=== PATIENT | female | born 1950 | race African-American/Black ===

== ENCOUNTER → 2022-12-15 | Day surgery (SDC) | payer MEDICARE, BC ==
[~2022-12-15] VITALS: Ht 167.6 cm; Wt 89.8 kg
[~2022-12-15] MED LIST: ATEN-42 PO; ATOR10TA69 PO; BALANCED SALT IRRIG SOLN COMB1 500ML OP SCH; CYCLOPENTOLATE HCL 1% OPHTH DROPS 2ML LEFTEYE NR; FENTANYL CITRATE/PF 50MCG/ML 2ML VIAL ONE; HYALURONATE SODIUM 10 MG/ML 0.55ML SYRINGE IO ONE; HYDROMORPHONE HCL/PF 2MG/ML CPJ IV PRN; LABETALOL 5MG/ML SYR 20 MG/4 ML SYRINGE IV PRN; MEPERIDINE HCL/PF 25MG/ML CPJ IV PRN; MIDAZOLAM HCL 2 MG/2 ML VIAL ONE; OMEP40CA20 PO; ONDANSETRON HCL 4MG/2ML INJ IV PRN; PHENYLEPHRINE HCL 10% OPHTH DROPS 5ML LEFTEYE NR; TROPICAMIDE 1% OPHTH DROPS 15ML LEFTEYE NR; TRYPAN BLUE 0.5 ML DISP.SYRIN IO ONE
[2022-12-15] MEDS: LACTATED RINGERS 1,000 ML IV SCH ×2 (13:00→13:03)
[2022-12-15 15:24] VITALS: BP 183/101
== END | disposition home or self-care (01) ==
LOC: OR 11:32
PROVIDERS: ATTEND Ophthalmology
DX: H25.89 Other age-related cataract (principal); I10 Essential (primary) hypertension; E78.00 Pure hypercholesterolemia, unspecified; Z79.899 Other long term (current) drug therapy; Z90.710 Acquired absence of both cervix and uterus; Z98.890 Other specified postprocedural states
CPT/HCPCS: 66982; A4217; J2250; J3010; J3490; Q9957; V2632; Z7610

== ENCOUNTER → 2023-03-22 | Day surgery (SDC) | payer MEDICARE, BC ==
[~2023-03-22] VITALS: Ht 167.6 cm; Wt 87.5 kg
[~2023-03-22] MED LIST changes: +BALANCED SALT IRRIG SOLN COMB1 500ML OP ONE; -BALANCED SALT IRRIG SOLN COMB1 500ML OP SCH; -CYCLOPENTOLATE HCL 1% OPHTH DROPS 2ML LEFTEYE NR; +CYCLOPENTOLATE HCL 1% OPHTH DROPS 2ML RIGHTEYE SCH; -HYDROMORPHONE HCL/PF 2MG/ML CPJ IV PRN; -LABETALOL 5MG/ML SYR 20 MG/4 ML SYRINGE IV PRN; +LACTATED RINGERS 1,000 ML IV SCH; -MEPERIDINE HCL/PF 25MG/ML CPJ IV PRN; -ONDANSETRON HCL 4MG/2ML INJ IV PRN; -PHENYLEPHRINE HCL 10% OPHTH DROPS 5ML LEFTEYE NR; +PHENYLEPHRINE HCL 10% OPHTH DROPS 5ML RIGHTEYE SCH; -TROPICAMIDE 1% OPHTH DROPS 15ML LEFTEYE NR; +TROPICAMIDE 1% OPHTH DROPS 15ML RIGHTEYE SCH; -TRYPAN BLUE 0.5 ML DISP.SYRIN IO ONE
== END | disposition home or self-care (01) ==
LOC: OR 09:23
PROVIDERS: ATTEND Ophthalmology
DX: H25.89 Other age-related cataract (principal); I10 Essential (primary) hypertension; E78.00 Pure hypercholesterolemia, unspecified; Z79.899 Other long term (current) drug therapy; Z98.890 Other specified postprocedural states
CPT/HCPCS: 66982; 67005; J3010; J2250; J3490; A4217; Z7610 ×21; V2632